=== PATIENT | male | born 2000 | race African-American/Black ===

== ENCOUNTER 2024-09-06 11:28 | Emergency (ER) | payer MEDICAID, OTHER ==
[~2024-09-06] VITALS: Ht 177.8 cm; Wt 77.3 kg
[2024-09-06 11:31] VITALS: BP 128/80; PULSE 76; RESP 18; TEMP 98; O2SAT 99
[2024-09-06] MEDS: POVIDONE-IODINE 10% 15 ML SOLUTION UD TP ONE (13:36)
[2024-09-06] MEDS: PERTUSS(ACELL),DIPH,TET/PF 0.5 ML SYRINGE [ADULT] IM. ONE (13:37)
== END 2024-09-06 13:45 | disposition home or self-care (01) ==
LOC: EMS 11:32
DX: S61.231A Puncture wound without foreign body of left index finger without damage to nail, initial encounter (principal); W29.4XXA Contact with nail gun, initial encounter; Y93.89 Activity, other specified; Y92.89 Other specified places as the place of occurrence of the external cause; Y99.0 Civilian activity done for income or pay
CPT/HCPCS: 99283; 73140; 90715; 90471; A4247